=== PATIENT | male | born 1960 | race Asian ===

== ENCOUNTER 2024-09-22 15:05 | Emergency (ER) | payer MEDICAID, SELFPAY ==
--- NOTE | 2024-09-22 15:54 | PC.NURSE ---
no answer when called to be seen
--- NOTE | 2024-09-22 16:17 | PC.NURSE ---
called for pt from lobby/outside, no answer2 @ [phone]
--- NOTE | 2024-09-22 17:02 | PC.NURSE ---
CALLED FOR PT FROM LOBBY/OUTSIDE, NO [id number]@[phone]
== END 2024-09-22 22:25 | disposition left against medical advice (07) ==
PROVIDERS: Emergency Provider Family Medicine
DX: Z53.21 Procedure and treatment not carried out due to patient leaving prior to being seen by health care provider (principal)

== ENCOUNTER → 2025-01-25 | Outpatient (CLI) | payer MEDICARE, MEDICAID, SELFPAY ==
--- NOTE | 2025-01-25 15:33 | XR_ITS ---
Examination: Shoulder,right, 3 views Technique: Shoulder AP internal rotation, AP external rotation, Y view shoulder, 3 views Exam date and time :January 25, 2025 1534 hours INDICATIONS: Right shoulder pain beginning one month ago. FINDINGS: Moderate to advanced narrowing glenohumeral joint Minimal right shoulder calcific tendinitis No fracture or shoulder dislocation IMPRESSION: Moderate to advanced narrowing glenohumeral joint Minimal right shoulder calcific tendinitis
== END | disposition home or self-care (01) ==
LOC: CDIM 15:21
PROVIDERS: PCP Physician Assistant; Referring Provider Nurse Practitioner Family; Visit Provider Nurse Practitioner Family
DX: M75.31 Calcific tendinitis of right shoulder (principal); M25.811 Other specified joint disorders, right shoulder
CPT/HCPCS: 73030